=== PATIENT | male | born 1965 ===

== ENCOUNTER 2021-02-06 15:54 | Outpatient (RCR) | payer OTHER, SELFPAY ==
--- NOTE | 2021-02-06 16:21 | PTOPEVAL ---
Thank you for referring Pete Dorman to [facility].? The patient is scheduled to be seen for therapy? __3__x/week for 12 visits. Please review, sign, date and return this plan of care AUDREY. I agree with and certify that the following plan of care is medically necessary. Referring Physician Date Admitting Provider: Attending Provider: Guilherme Argueta Referring Provider: *PT Outpatient Evaluation Start: 02/06/21 15:55 Freq: Status: Active Protocol: Document 02/06/21 15:55 [facility] (Rec: 02/06/21 16:21 [facility] [id number]) Therapy Assessment Status Assessment Status Assessment Status Evaluation Evaluation Information Problem Diagnosis right TKA Onset 01/18/21 Subjective Information Pt. reports he underwent right Query Text:As Reported By Patient/ TKA on January 18. He reports Family he returned home from the hospital the same day. He states that he has been doing exercise at home consisting of raising the leg and attempting to bend the knee. Pt. reports that he is currently using a cane. Pain levels are consistent 02/18. He reports that he is not driving yet. Pt. reports he is using pain medication daily 2x/day mostly. He reports that his goal for therapy is to be able to walk and move without pain or limitation. 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 Hand Dominance Right Activity of Daily Living Ability Independent Indoor/Home Mobility Independent Community Mobility Independent Stairs Ability Independent Functional Cognition (Planning, Shopping Independent , Taking Medications) Cooking Yes Cleaning Yes Laundry Yes Shopping Yes Driving Yes Pain Assessment Timing of Pain Assessment Timing of Pain Assessment Pre-Treatment Pain Scale Pain Scale Used Numeric (1 - 10) Self Report Pain Assessment Right Knee(s) Reported Pain Level 4 Pain Description Aching Pain Frequency Continuous Pain Aggravating Factors Exercise/Activity,Walking Pain Score Pain Score 4: Self Report Interventions Used Inte
== END 2021-03-07 13:31 | disposition home or self-care (01) ==
LOC: CHSPT 15:54
PROVIDERS: PCP Family Medicine
DX: Z47.1 Aftercare following joint replacement surgery (principal); Z96.651 Presence of right artificial knee joint
CPT/HCPCS: 97016; 97110; 97161; 97530

== ENCOUNTER 2021-09-05 16:53 | Outpatient (RCR) | payer OTHER, SELFPAY ==
--- NOTE | 2021-09-05 17:59 | PTOPEVAL ---
Thank you for referring Pete Dorman to [facility].? The patient is scheduled to be seen for therapy? ____x/week for ___ weeks. Please review, sign, date and return this plan of care AUDREY. I agree with and certify that the following plan of care is medically necessary. Referring Physician Date Admitting Provider: Attending Provider: Guilherme Argueta Referring Provider: *PT Outpatient Evaluation Start: 09/05/21 17:02 Freq: Status: Active Protocol: Document 09/05/21 17:04 [facility] (Rec: 09/05/21 17:57 [facility] [email or web address]) Therapy Assessment Status Assessment Status Assessment Status Evaluation Evaluation Information Problem Diagnosis aftercare following R TKA, R knee pain Onset 01/18/21 Additional Evaluation Detail LEFS = 26% functionally declined Subjective Information patient reports he is Query Text:As Reported By Patient/ continuing to have some noise Family /grinding in the R knee after his TKA back in january. he reports he has pain in the R knee when getting up after sitting for a long period of time. he reports the knee cap feels like it shifts. he reports the grinding is audible with bending and extending his R knee. he reports he has followed up with MD and reports the xrays are negative for any new pathology. Prior Level of Function Comments Additional Prior Level of Function patient reports he has not Comments gotten back to pain freen activity without complications since the R knee replacement. Pain Assessment Timing of Pain Assessment Timing of Pain Assessment Assessment Pain Scale Pain Scale Used Numeric (1 - 10) Self Report Pain Assessment Right Knee(s) Reported Pain Level 3 Pain Frequency Acute,Chronic,Continuous Greatest Pain Intensity 5 Pain Score Pain Score 3: Self Report Interventions Used Interventions Used By Clinicians Activity or ADL's,Compression Pump,Education,Exercise,Ice, Rest Lower Extremity Range of Motion General Lower Extremity Range of Motion Gross Lower Extremity Range of Motion 0-132 L knee active mobility Comments 0-128 R knee active mobility Lower Extremity Muscle Strength Testing General Lower Extremity Strength
--- NOTE | 2021-10-04 10:02 | PTOPEVAL ---
Thank you for referring Pete Dorman to [facility].? The patient is scheduled to be seen for therapy? ____x/week for ___ weeks. Please review, sign, date and return this plan of care AUDREY. I agree with and certify that the following plan of care is medically necessary. Referring Physician Date Admitting Provider: Attending Provider: Guilherme Argueta Referring Provider: *PT Outpatient Evaluation Start: 09/05/21 17:02 Freq: Status: Active Protocol: Document 10/04/21 08:55 [facility] (Rec: 10/04/21 10:01 [facility] [email or web address]) Therapy Assessment Status Assessment Status Assessment Status Discharge Evaluation Information Problem Diagnosis aftercare following R TKA, R knee pain Onset 01/18/21 Subjective Information patient reports he continues Query Text:As Reported By Patient/ to have grinding in the R knee Family , and has had some increased popping in the R knee lately. he reports the pain is the same, and if anything his popping is a bit worse. he reports he follows up with the MD on saturday of next week. Pain Assessment Timing of Pain Assessment Timing of Pain Assessment Assessment Pain Scale Pain Scale Used Numeric (1 - 10) Self Report Pain Assessment Right Knee(s) Reported Pain Level 2 Pain Score Pain Score 2: Self Report Interventions Used Interventions Used By Clinicians Activity or ADL's,Education, Exercise,Manual Therapy Techniques Lower Extremity Range of Motion General Lower Extremity Range of Motion Gross Lower Extremity Range of Motion 0-130 degrees arom R knee Comments mobility Lower Extremity Muscle Strength Testing General Lower Extremity Strength Gross Lower Extremity Strength 5/5 R hip flex 5/5 R knee flex and ext Muscle Length Testing Muscle Length Testing Left Hamstring Length 10 Query Text:(90 - 90 Position) Right Hamstring Length 10 Query Text:(90 - 90 Position) Palpation Assessment Palpation Palpation patient presents with crepitus from far flexion of the R knee to extension of the R knee. patient also presents with positive patellar grind test. Gait Assessment Gait Pattern Assessment Gait Pattern No Deviations/Normal General Exercise General Exercises Exercise Description TherEx Query Text:Record Sets, Reps,
== END 2021-10-04 10:19 | disposition home or self-care (01) ==
LOC: CHSPT 16:53
DX: Z47.1 Aftercare following joint replacement surgery (principal); Z96.651 Presence of right artificial knee joint
CPT/HCPCS: 97110; 97140; 97161; 97530

== ENCOUNTER 2022-05-29 11:15 | Outpatient (CLI) | payer OTHER, SELFPAY ==
[2022-05-29 11:36] LABS: Hematocrit 39.3 % (40.0-54.0); Hemoglobin 13.2 g/dL (14.0-18.0); Mean Corpuscular HGB Conc 33.6 g/dL (32.0-36.0); Mean Corpuscular Hemoglobin 30.7 pg (27.0-31.0); Mean Corpuscular Volume 91.4 fL (78.0-102.0); Mean Platelet Volume 9.9 fl (8.7-11.0); Platelet Count Result 237 K/mm3 (150-420); Red Cell Distribution Width 12.9 % (11.6-14.4); White Blood Count 5.8 K/mm3 (4.8-10.8)
[2022-05-29 11:57] LABS: Alanine Aminotransferase 18 U/L (16-63); Alkaline Phosphatase 78 U/L (46-116); Aspartate Amino Transferase 15 U/L (15-37); Bilirubin,Total 0.5 mg/dL (0.00-1.00); Blood Urea Nitrogen 10 mg/dL (7-18); Calcium 9.1 mg/dL (8.5-10.1); Carbon Dioxide 24 mmol/L (21-32); Cholesterol 220 mg/dL (0-200); Estimated Glomerular Filt Rate > 60; Glucose 94 mg/dL (70-99); HDL Direct 74 mg/dL (40-60); LDL Cholesterol Calculated 132 mg/dL (<130); Total Protein 7.3 g/dL (6.4-8.2); Triglycerides 70 mg/dL (0-150)
[2022-05-29 12:31] LABS: Anion Gap 12 mmol/L (8-16); Chloride 104 mmol/L (98-108); Osmolality Calculated 289 mOsm/kg (285-295); Potassium 3.6 mmol/L (3.5-5.1); Sodium 140 mmol/L (136-145)
== END 2022-05-29 11:16 | disposition home or self-care (01) ==
LOC: CHSLAB 11:16
PROVIDERS: PCP Family Medicine; Visit Provider Family Medicine
DX: Z00.00 Encounter for general adult medical examination without abnormal findings (principal)
CPT/HCPCS: 36415; 80053; 80061; 85027